=== PATIENT | female | born 1995 | race Caucasian/White ===

== ENCOUNTER 2017-05-12 19:54 | Inpatient (IN) | payer OTHER ==
[~2017-05-12] VITALS: Ht 165.1 cm; Wt 71.0 kg
[2017-05-12 21:29] LABS: BASOPHIL % 0.6 % (0-2); PLATELET COUNT 284 x10^3mcL (130-400); RED CELL DISTRIBUTION WIDTH 13.4 % (11.5-14.5)
[2017-05-12 21:32] LABS: CALCIUM 8.7 mg/dL (8.5-10.1); CARBON DIOXIDE 29.6 mmol/L (21-32); CHLORIDE SERUM 105 mmol/L (98-107); CREATININE SERUM 0.6 mg/dL (0.6-1.0); GFR1 > 60 mL/min; GLUCOSE SERUM 109 mg/dL (74-106); POTASSIUM SERUM 4.1 mmol/L (3.5-5.1); SODIUM SERUM 142 mmol/L (136-145)
[2017-05-12 21:36] LABS: ALBUMIN 4.1 g/dL (3.4-5.0); ALKALINE PHOSPHATASE 178 U/L (46-116); ALT/SGPT 444 U/L (14-59); AMYLASE 37 U/L (25-115); AST/SGOT 763 U/L (15-37); BILIRUBIN TOTAL 2.1 mg/dL (0.20-1.00); LIPASE 177 IU/L (73-393); TOTAL PROTEIN, SERUM 7.7 g/dL (6.4-8.2)
[2017-05-12 23:50] VITALS: BP 113/62
[2017-05-12 23:54] VITALS: Ht 165.1 cm; Wt 71.0 kg
[2017-05-13 00:22] LABS: T3 TOTAL 1.08 ng/mL
[2017-05-13 00:25] LABS: PHOSPHOROUS 4.1 mg/dL (2.5-4.9)
[2017-05-13 00:27] LABS: CHOLESTEROL/HDL RATIO 7.8
[2017-05-13 00:32] LABS: FREE T4 1.25 ng/dL (0.76-1.46); FREE THYROXINE INDEX 3.4 ug/dL (1.4-4.5); T4(THYROXINE) 8.9 ug/dL (4.7-13.3)
[2017-05-13 06:02] LABS: BASOPHIL % 0.8 % (0-2); PLATELET COUNT 257 x10^3mcL (130-400); RED CELL DISTRIBUTION WIDTH 13.5 % (11.5-14.5)
[2017-05-13 06:16] LABS: CALCIUM 8.1 mg/dL (8.5-10.1); CARBON DIOXIDE 25.6 mmol/L (21-32); CHLORIDE SERUM 107 mmol/L (98-107); CREATININE SERUM 0.6 mg/dL (0.6-1.0); GFR1 > 60 mL/min; GLUCOSE SERUM 105 mg/dL (74-106); SODIUM SERUM 140 mmol/L (136-145)
[2017-05-13 06:19] VITALS: BP 103/49
[2017-05-13 09:15] VITALS: BP 106/58
[2017-05-13 18:39] VITALS: BP 108/63
[2017-05-13 19:36] LABS: microscopic required? YES; urine erythrocyte NEGATIVE (NEGATIVE)
[2017-05-13 20:14] LABS: AMPHETAMINE QUAL UR NONE DETECTED (NEG <=1000)
[2017-05-13 21:42] VITALS: BP 118/75
[2017-05-14 05:38] VITALS: BP 111/65
[2017-05-14 06:28] LABS: BASOPHIL % 0.4 % (0-2); PLATELET COUNT 264 x10^3mcL (130-400); RED CELL DISTRIBUTION WIDTH 13.1 % (11.5-14.5)
[2017-05-14 06:29] LABS: ALKALINE PHOSPHATASE 242 U/L (46-116); ALT/SGPT 535 U/L (14-59); AST/SGOT 465 U/L (15-37); BILIRUBIN TOTAL 2.85 mg/dL (0.20-1.00); CALCIUM 8.3 mg/dL (8.5-10.1); CARBON DIOXIDE 26.3 mmol/L (21-32); CHLORIDE SERUM 105 mmol/L (98-107); CREATININE SERUM 0.6 mg/dL (0.6-1.0); GFR1 > 60 mL/min; GLUCOSE SERUM 90 mg/dL (74-106); MAGNESIUM 1.8 mg/dL (1.8-2.4); SODIUM SERUM 140 mmol/L (136-145); TOTAL PROTEIN, SERUM 6.3 g/dL (6.4-8.2)
[2017-05-14 06:42] LABS: ALBUMIN 3.1 g/dL (3.4-5.0)
[2017-05-14 11:10] VITALS: BP 114/71
[2017-05-14 17:34] VITALS: BP 119/70
[2017-05-14 20:38] VITALS: BP 121/77
[2017-05-15 05:34] VITALS: BP 126/70
[2017-05-15 06:21] LABS: BASOPHIL % 0.6 % (0-2); PLATELET COUNT 242 x10^3mcL (130-400)
[2017-05-15 06:33] LABS: CARBON DIOXIDE 25.2 mmol/L (21-32); CHLORIDE SERUM 105 mmol/L (98-107); CREATININE SERUM 0.6 mg/dL (0.6-1.0); GFR1 > 60 mL/min; GLUCOSE SERUM 104 mg/dL (74-106); MAGNESIUM 1.6 mg/dL (1.8-2.4); POTASSIUM SERUM 3.3 mmol/L (3.5-5.1); SODIUM SERUM 139 mmol/L (136-145)
[2017-05-15 09:07] VITALS: BP 127/75
[2017-05-15] MEDS ORDERED: COLACE100 MG PO (13:02)
[2017-05-15] MEDS ORDERED: NORCO1 TA2 PO (13:07)
[2017-05-15 13:09] VITALS: BP 127/75
[2017-05-15] MEDS ORDERED: LEVAQUIN500 M1 PO ×2 (13:11→14:37)
[2017-05-15] MEDS ORDERED: LAC PO (13:11)
[2017-05-15 13:53] VITALS: BP 124/84
== END 2017-05-15 15:10 | disposition home or self-care (01) | DRG 263 ==
LOC: ED 19:54 → DU 22:51
PROVIDERS: Emergency Medicine; Surgery; ADMIT Family Medicine
PROC: BF001ZZ Plain Radiography of Bile Ducts using Low Osmolar Contrast (ICD-10-PCS; 2017-05-13)
PROC: 0FT44ZZ Resection of Gallbladder, Percutaneous Endoscopic Approach (ICD-10-PCS; principal; 2017-05-13 09:45)
PROC: 0F798ZZ Dilation of Common Bile Duct, Via Natural or Artificial Opening Endoscopic (ICD-10-PCS; 2017-05-14)
DX: K80.10 Calculus of gallbladder with chronic cholecystitis without obstruction (principal); N17.0 Acute kidney failure with tubular necrosis; K80.50 Calculus of bile duct without cholangitis or cholecystitis without obstruction; N39.0 Urinary tract infection, site not specified; E78.5 Hyperlipidemia, unspecified; E03.9 Hypothyroidism, unspecified; E44.1 Mild protein-calorie malnutrition; Z68.26 Body mass index [BMI] 26.0-26.9, adult
CPT/HCPCS: 43262; 83880; 84439; 94150; C1758; C1769; C1887; J0330; J0690; J0696; J1170; J1885; J2175; J2250; J2270; J2405; J2704; J2710; J3010; J3490; J7030; J7120; Q0092; Q9967

== ENCOUNTER 2018-03-28 08:47 | Emergency (ER) | payer OTHER ==
[~2018-03-28] VITALS: Ht 157.5 cm; Wt 67.6 kg
[~2018-03-28 08:47] MED LIST: COLACE100 MG PO; LAC PO; LEVAQUIN500 M1 PO; NORCO1 TA2 PO
[2018-03-28 08:54] VITALS: Ht 157.5 cm; Wt 67.6 kg
[2018-03-28 10:13] LABS: BASOPHIL % 1.2 % (0-2); PLATELET COUNT 276 x10^3mcL (130-400); RED CELL DISTRIBUTION WIDTH 12.9 % (11.5-14.5)
[2018-03-28 10:20] LABS: CALCIUM 8.8 mg/dL (8.5-10.1); CARBON DIOXIDE 27.4 mmol/L (21-32); CHLORIDE SERUM 106 mmol/L (98-107); CREATININE SERUM 0.7 mg/dL (0.6-1.0); GFR1 > 60 mL/min; GLUCOSE SERUM 110 mg/dL (74-106); SODIUM SERUM 141 mmol/L (136-145)
[2018-03-28 10:24] LABS: ALBUMIN 3.9 g/dL (3.4-5.0); ALKALINE PHOSPHATASE 116 U/L (46-116); ALT/SGPT 20 U/L (14-59); AST/SGOT 16 U/L (15-37); BILIRUBIN TOTAL 0.61 mg/dL (0.20-1.00); LIPASE 181 IU/L (73-393); TOTAL PROTEIN, SERUM 7.2 g/dL (6.4-8.2)
[2018-03-28 10:37] LABS: FREE T4 0.84 ng/dL (0.76-1.46); T4(THYROXINE) 6.1 ug/dL (4.7-13.3)
[2018-03-28 10:48] LABS: T3 TOTAL 1.1 ng/mL
[2018-03-28 11:05] VITALS: BP 120/65
== END 2018-03-28 12:00 | disposition home or self-care (01) ==
LOC: ED 08:47
PROVIDERS: Emergency Medicine
DX: R53.1 Weakness (principal); M41.9 Scoliosis, unspecified; N91.2 Amenorrhea, unspecified; M54.6 Pain in thoracic spine
CPT/HCPCS: 36415; 84439

== ENCOUNTER 2019-04-15 15:12 | Emergency (ER) | payer OTHER ==
[~2019-04-15] VITALS: Ht 160 cm; Wt 71.7 kg
[2019-04-15 15:21] VITALS: Ht 160 cm; Wt 71.7 kg
[2019-04-15 17:16] VITALS: BP 111/75
== END 2019-04-15 17:16 | disposition home or self-care (01) ==
LOC: ED 15:12
DX: R10.12 Left upper quadrant pain (principal); Z90.49 Acquired absence of other specified parts of digestive tract; R07.81 Pleurodynia